=== PATIENT | male | born 1975 | race Caucasian/White ===

== ENCOUNTER 2016-12-29 21:50 | Emergency (ER) | payer SELFPAY | END 2016-12-29 22:28 | disposition home or self-care (01) | LOC: ER 21:50 | PROC: 0XQVXZZ Repair Right Little Finger, External Approach (ICD-10-PCS; principal; 2016-12-29) | DX: S62.636A Displaced fracture of distal phalanx of right little finger, initial encounter for closed fracture (principal); S61.316A Laceration without foreign body of right little finger with damage to nail, initial encounter; W45.8XXA Other foreign body or object entering through skin, initial encounter | CPT/HCPCS: 73140-RT; 90471; 90714; 96372; 99283; A9270-GY; J0690 ==